=== PATIENT | female | born 1970 | race Two or more races ===

== ENCOUNTER 2018-09-29 18:53 | Emergency (ER) | payer MEDICAID, OTHER ==
[2018-09-29 19:01] VITALS: BP 120/82
--- NOTE | 2018-09-29 19:06 | EDPHY ---
H & P Stated Complaint: pt fell walking dog inj ? dislocated r 5th digit and lip contusion - Personal History LMP (Females 10-55): 22-28 Days Ago Current Tetanus Diphtheria and Acellular Pertussis (TDAP): Yes - Medical/Surgical History Hx Asthma: No Hx Chronic Respiratory Disease: No Hx Diabetes: Yes Hx Cardiac Disease: No Hx Renal Disease: No Hx Cirrhosis: No Hx Alcoholism: No Hx HIV/AIDS: No Hx Splenectomy or Spleen Trauma: No Other PMH: diabetes - Social History Smoking Status: Never smoked Time Seen by Provider: 09/29/18 19:01 HPI/ROS: CHIEF COMPLAINT: Right pinky finger injury HISTORY OF PRESENT ILLNESS: 48-year-old female via private vehicle complaining of acute right 5th digit injury after she was walking her dog, sustained a mechanical fall impacting her right 5th digit with noted deformity at the PIP joint. Limited range of motion. Occurred shortly prior to arrival. She also impacted her upper lip sustaining abrasion. Denies intraoral injury such as dental fracture or taste of blood. Denies loss of consciousness. Denies alcohol or drug use. Denies midline C-spine pain. Denies peripheral paresthesia, weakness, numbness. REVIEW OF SYSTEMS: 10 systems reviewed and negative with the exception of the elements mentioned in the history of present illness PAST MEDICAL/SURGICAL HISTORY: Tetanus up-to-date. no anticoagulant use, no relevant medical/surgical history SOCIAL HISTORY: denies alcohol use at time of incident PHYSICAL EXAM 1) GENERAL: Well-developed, well-nourished, alert and oriented. Appears to be in no acute distress. Answering questions appropriately. 2) HEAD: Normocephalic, atraumatic 3) HEENT: Pupils equal, round, reactive to light bilaterally. Negative Horners. Nasopharynx, oropharynx, clear. No deformity or angulation of nose. No septal hematoma. No rhinorrhea. No oral trauma. Ears bilaterally with normal tympanic membranes. No hemotympanum. No fluid or blood in the external auditory canal. No raccoon eyes. No Baez sign. Abrasion to upper lip with no laceration. Teeth are normally aligned with no gross malocclusion, TMJ bilaterally nontender, facial bones nontender including the zygomatic arch, maxilla mandible. 4) NECK: No cervical collar is on. Posterior cervical spine is nontender, no stepoff, no effusion. Full range of motion which does not elicit any midline cervical spine pain, no posterior midline tenderness, no step-off. 5) LUNGS: Clear to auscultation bilaterally, no wheezes, no rhonchi, no retractions. No obvious signs of trauma. No chest wall pain. No flaring, no grunting. Moving symmetrically. No crepitus. 6) HEART: [Regular rate and rhythm, 7) ABDOMEN: No guarding, no rebound, no focal tenderness, no peritoneal signs, no signs of trauma, no ecchymosis 8) MUSCULOSKELETAL: Right upper extremity: Intact skin, deformity at the 5th digit PIP joint. No tenting of tissue. Proximally distally nontender. Brisk capillary refill distally. Soft compartments. Otherwise hand nontender.. Moving all extremities, no focal areas of tenderness, no obvious trauma. 9) BACK: No midline vertebral tenderness, no fluctuance, no step-off, no obvious trauma, no visual or palpable abnormality. 10) SKIN: No laceration. DIFFERENTIAL DIAGNOSIS: In no particular order including but not limited to fracture, sprain, strain, dislocation (Cathy Miranda Meg) Constitutional: Initial Vital Signs Temperature (C) 37 C 09/29/18 18:57 Heart Rate 85 09/29/18 18:57 Respiratory Rate 18 09/29/18 18:57 Blood Pressure 120/82 H 09/29/18 18:57 O2 Sat (%) 98 09/29/18 18:57 O2 Delivery Mode Room Air Allergies/Adverse Reactions: No Known Allergies Allergy (Unverified 09/29/18 18:55) Home Medications: Medication Instructions Recorded Metformin HCl 09/29/18 Medical Decision Making - Diagnostics Imaging Results: Images reviewed myself (Cathy Miranda) Procedures: 7:10 p.m.: Procedure: Dislocation reduction. . The dislocation of the right 5th digit at the PIP joint was reduced using traction and counter traction technique without complications. Post reduction the patient's neurovascular exam is normal. Post reduction x-ray demonstrates reduction of the joint to the anatomic position. The procedure was performed by myself. Procedure: Splint A david-tape and aluminum finger splint was applied by ER bench repair technician. After application of the splint I returned and re-examined the patient. The splint was adequately immobilizing the joint and distal to the splint the patient's circulation and sensation were intact. Patient shows no signs of compartment syndrome. Was given orthopedic precautions. (Cathy Miranda) ED Course/Re-evaluation: Re-evaluation with serial exams. Reduction of her finger injury by myself, see procedure note. Recommend hand surgery follow-up. She has been splinted. She is also noted to have an upper lip abrasion with no underlying maxillary discomfort, no dental fracture, negative [place] head and C-spine decision- making tools. I do not think that imaging studies indicated at this time. I have a verbalized my usual and customary head injury precautions instructions and she feels comfortable being discharged. I saw this patient independently based on established practice protocols. Care of patient under supervision of secondary supervising physician Dr Latricia Coe. (Cathy Miranda) This patient was managed by the physician animal assistant. I agree with the plan of care. I am the secondary supervising physician. (Latricia Coe) Departure - Departure Disposition: Home, Routine, Self-Care Clinical Impression: Dislocation, finger closed Condition: Good Instructions: Finger Dislocation (ED) Additional Instructions: Return to the ER immediately if you experience discoloration, have worsening pain, numbness, tingling, or any other symptoms that concern you. If you received x-rays in the emergency department today, be advised, that ligamentous , tendon, muscular, and other non-bony injury cannot be fully ruled out. Try to keep your affected extremity elevated above the level of your chest, and keep cold packs on the affected area, for the next 48 hours. Regrese a la susan de emergencias de inmediato si experimenta decoloracion, empeora el dolor, entumecimiento, hormigeo, o cualquier otro sintoma que le preocupe. Si recibio radiografias en el departamento de emergencias hoy, tenga en cuenta, que no puede descartar por completo la lesion de ligamentos, tendones , musculos, y otras lesiones no raoul. Trate de mantener vinson extremidad elevada arriba del nivel del pecho, y mantenga compresas ba en la area affectada, por las siguientes 48 horas. Referrals: Ari,Karin A, MD [Medical Doctor] - 5-7 days, call for appt. Print Language: [place]
== END 2018-09-29 19:50 | disposition home or self-care (01) ==
PROC: 0RSWXZZ Reposition Right Finger Phalangeal Joint, External Approach (ICD-10-PCS; principal; 2018-09-29)
DX: S63.286A Dislocation of proximal interphalangeal joint of right little finger, initial encounter (principal); W19.XXXA Unspecified fall, initial encounter; Y93.K1 Activity, walking an animal
CPT/HCPCS: L3925